=== PATIENT | female | born 1995 | race Caucasian/White ===

== ENCOUNTER → 2018-08-09 02:41 | Observation (INO) ==
[2018-08-09 01:31] LABS: Bilirubin,Urine Negative (Negative); Blood,Urine Negative (Negative); Clarity,Urine Cloudy (Clear); Color,Urine Yellow (Yellow); Glucose,Urine (UA) Normal (Normal); Ketones,Urine Negative (Negative); Leukocyte Esterase,Urine Large (Negative); Nitrite,Urine Negative (Negative); PH,Urine 6.5 pH Units (5.0-8.0); Protein,Urine Negative (Neg-Trace); Specific Gravity,Urine 1.013 (1.010-1.025); Urobilinogen,Urine Normal (Normal)
[2018-08-09 01:33] LABS: Bacteria,Urine Moderate per hpf (None-Few); Hyaline Casts,Urine None Seen per lpf (None-Few); RBC,Urine 0-3 per hpf (0-3); Squamous Epithelial Cell,Urine Many per lpf (None-Few); WBC,Urine 50-100 per hpf (0-3)
[2018-08-09 01:40] LABS: Amphetamine Screen,Urine Negative ng/mL (Cutoff=1000); Barbiturate Screen,Urine Negative ng/mL (Cutoff=200); Benzodiazepines Screen,Urine Negative ng/mL (Cutoff=200); Cannabinoid Screen,Urine Negative ng/mL (Cutoff = 50); Cocaine Screen,Urine Negative ng/mL (Cutoff= 300); Opiate Screen,Urine Negative ng/mL (Cutoff=300); Phencyclidine Screen,Urine Negative ng/mL (Cutoff=25)
[2018-08-09 02:23] LABS: Candida DNA DETECTED (Not Detect); Gardnerella DNA DETECTED (Not Detect); Trichomonas DNA Not Detected (Not Detect)
--- NOTE | 2018-08-09 06:18 | OB/GYN Progress Note ---
Date of Encounter: 08/09/18 Time of Encounter: 02:30 - Assessment and Plan (1) 33 weeks gestation of Status: Acute Urine - contaminated Vaginosis panel - yeast and gardnerella NST reactive Discharge home with labor precautions Follow up in office with routine care and PRN POC per consult with Dr Bernardo. (2) NST (non-stress test) reactive on surveillance Status: Acute Subjective - Subjective Principal diagnosis: Vaginal pressure Interval history: Ms Stauffer is a at 33 weeks 4 days that presents to triage to complaints of vaginal pressure and pain with movement. She had a with her previous delivery due to a vaginal septum. She is seen for her care by Dr Michele. Antepartum ROS: movement normal Objective - Vital Signs Vital Signs: Intake and Output 08/08/18 08/08/18 08/09/18 15:59 23:59 07:59 Other: Weight 91.852 kg Patient Weight 08/09/18 23:59 Weight 91.852 kg - Exam FHR: category 1 Abdomen: Present: soft, gravid. Absent: tenderness Uterus: Present: normal. Absent: firm, tenderness Comments: yeast like vaginal discharge - Labs Labs: Abnormal lab results Urine Clarity Cloudy (Clear) A 08/09/18 01:14 Ur Leukocyte Esterase Large (Negative) H 08/09/18 01:14 Urine Microscopic WBC 50-100 per hpf (0-3) H 08/09/18 01:14 Ur Squamous Epith Cells Many per lpf (None-Few) H 08/09/18 01:14 Urine Bacteria Moderate per hpf (None-Few) H 08/09/18 01:14 Ur Culture Indicated? NO. (NO) A 08/09/18 01:14 Alesha species DNA DETECTED (Not Detect) A 08/09/18 01:31 Gardnerella DNA Probe DETECTED (Not Detect) A 08/09/18 01:31
== END | disposition home or self-care (01) ==
LOC: 1NENULAB
PROVIDERS: ADMIT Advanced Practice Midwife; ATTEND Advanced Practice Midwife

== ENCOUNTER → 2018-08-25 01:12 | Observation (INO) ==
[2018-08-25 00:35] LABS: Bilirubin,Urine Negative (Negative); Blood,Urine Negative (Negative); Color,Urine Yellow (Yellow); Glucose,Urine (UA) Normal (Normal); Ketones,Urine Negative (Negative); Leukocyte Esterase,Urine Large (Negative); Nitrite,Urine Negative (Negative); PH,Urine 6.5 pH Units (5.0-8.0); Protein,Urine Negative (Neg-Trace); Specific Gravity,Urine 1.007 (1.010-1.025); Urobilinogen,Urine Normal (Normal)
[2018-08-25 00:37] LABS: Bacteria,Urine Moderate per hpf (None-Few); Hyaline Casts,Urine None Seen per lpf (None-Few); RBC,Urine 0-3 per hpf (0-3); Squamous Epithelial Cell,Urine Many per lpf (None-Few); WBC,Urine TNTC per hpf (0-3)
[2018-08-25 00:40] LABS: Clarity,Urine Hazy (Clear)
[2018-08-25 00:46] LABS: Amphetamine Screen,Urine Negative ng/mL (Cutoff=1000); Barbiturate Screen,Urine Negative ng/mL (Cutoff=200); Benzodiazepines Screen,Urine Negative ng/mL (Cutoff=200); Cannabinoid Screen,Urine Negative ng/mL (Cutoff = 50); Cocaine Screen,Urine Negative ng/mL (Cutoff= 300); Opiate Screen,Urine Negative ng/mL (Cutoff=300); Phencyclidine Screen,Urine Negative ng/mL (Cutoff=25)
--- NOTE | 2018-08-25 00:48 | OB/GYN Progress Note ---
Date of Encounter: 08/25/18 Time of Encounter: 00:41 - Assessment and Plan (1) 35 weeks gestation of Status: Acute (2) Encounter for suspected PROM, with rupture of membranes not found Status: Acute Negative nitrazine, no pooling on SSE. Suspect yeast infection persisting. Vaginosis panel shows yeast and BV. Rx clindamycin. Rx clotrimazole. Discharge home with precautions. (3) NST (non-stress test) reactive on surveillance Status: Acute 145 BPM, reactive NST Subjective - Subjective Interval history: 22 year-old female presenting at 35w6d with c/o leaking fluid, discharge, vaginal itching/irritation, and sharp pain in right lower back and hip. She reports the leaking started at 11:30 pm. She reports the she has been having contractions for days. Good FM. No other complaints. She was recently treated for BV and a yeast infection. This is complicated by obesity, history of delivery, history of previous delivery, and vaginal septum. Antepartum ROS: loss of fluid, movement normal, contractions, no vaginal bleeding Objective - Vital Signs Vital Signs: Intake and Output 08/24/18 08/24/18 08/25/18 15:59 23:59 07:59 Other: Weight 91.626 kg Patient Weight 08/25/18 23:59 Weight 91.626 kg - Exam FHR: category 1 Auscultation: bilateral: normal Abdomen: Present: soft, gravid Uterus: Present: normal. Absent: tenderness Cervical dilation: 1/thick/-3 per RN Comments: SSE with thick, white, discharge, negative pooling, negative nitrazine. - Labs Labs: Abnormal lab results Hazy (Clear) A 08/25/18 00:10 Ur Specific Douglas 1.007 (1.010-1.025) L 08/25/18 00:10 Ur Leukocyte Esterase Large (Negative) H 08/25/18 00:10 TNTC per hpf (0-3) H 08/25/18 00:10 Ur Squamous Epith Cells Many per lpf (None-Few) H 08/25/18 00:10 Moderate per hpf (None-Few) H 08/25/18 00:10 Ur Culture Indicated? YES (NO) A 08/25/18 00:10
[2018-08-25 01:38] LABS: Candida DNA DETECTED (Not Detect); Gardnerella DNA DETECTED (Not Detect); Trichomonas DNA Not Detected (Not Detect)
== END | disposition home or self-care (01) ==
LOC: 1NENULAB
PROVIDERS: ADMIT Registered Nurse; ATTEND Registered Nurse

== ENCOUNTER 2018-09-02 22:25 | Observation (INO) ==
[2018-09-02 23:09] LABS: Amphetamine Screen,Urine Negative ng/mL (Cutoff=1000); Barbiturate Screen,Urine Negative ng/mL (Cutoff=200); Benzodiazepines Screen,Urine Negative ng/mL (Cutoff=200); Cannabinoid Screen,Urine Negative ng/mL (Cutoff = 50); Cocaine Screen,Urine Negative ng/mL (Cutoff= 300); Opiate Screen,Urine Negative ng/mL (Cutoff=300); Phencyclidine Screen,Urine Negative ng/mL (Cutoff=25)
--- NOTE | 2018-09-02 23:13 | Discharge Summary ---
Date of Encounter: 09/02/18 Time of Encounter: 23:12 - Discharge Diagnosis (1) 37 weeks gestation of Priority: Primary Status: Acute Comments: Admit to observation for SROM evaluation (2) Vaginal discharge during in third trimester Priority: Secondary Status: Acute Comments: Seen on 08/25/18, vaginosis panel +BV and yeast. Patient is taking Clindamycin for BV but her pharmacy did not have the Clotrimazole available. Terazol sent to patient's pharmacy (3) NST (non-stress test) reactive on surveillance Priority: Secondary Status: Acute Comments: FHR 155 bpm, moderate variability, +15x15 accels, no decels. - Discharge Medications Prescriptions: No Action Formula Tablet 1 tab PO DAILY Clindamycin HCl [Cleocin HCl] 300 mg PO BID #14 capsule Home Medications: Formula Tablet 1 tab PO DAILY 07/05/18 [History] Clindamycin HCl [Cleocin HCl] 300 mg PO BID #14 capsule 08/25/18 [Rx] Allergies/Adverse Reactions: Allergy/AdvReac Type Severity Reaction Status Date / Time No Known Allergies Allergy Verified 09/02/18 22:39 Data Procedures and tests throughout hospitalization: Laboratory Tests 09/02/18 22:45 Urine Opiates Screen Negative Ur Barbiturates Screen Negative Ur Phencyclidine Scrn Negative Ur Amphetamines Screen Negative U Benzodiazepines Scrn Negative Urine Cocaine Screen Negative U Marijuana (THC) Screen Negative Ur Drug Screen Interp See Below Labs on day of discharge: Labs from last 24 hours 09/02/18 22:45 Urine Opiates Screen Negative Ur Barbiturates Screen Negative Ur Phencyclidine Scrn Negative Ur Amphetamines Screen Negative U Benzodiazepines Scrn Negative Urine Cocaine Screen Negative U Marijuana (THC) Screen Negative Ur Drug Screen Interp See Below Date of admission: 09/02/18 22:25 Discharging clinician: Addis Delgadillo Anticipated date of discharge: 09/02/18 - Patient Status Disposition: Home, Self-Care Condition: Good Functional capacity at discharge: independent ambulation Overall status at discharge: patient is progressing back to baseline - Discharge Instructions Follow Up With: Melita Michele DO [Partnered Physician] - - Diet and Activity Activity: resume usual activities as tolerated Diet: regular diet Hospital Course PUBLIC RELATIONS INTERN Hospital course: Chest his at 37 weeks 0 days who presents to labor and delivery with complaints of possible ruptured membranes. States she had a large gush of fluid and has continued to leak since that time. Nitrazine to the perineum returned negative, sterile speculum exam completed with negative nitrazine results. Large amount of yeast appearing discharge noted in the vagina. No obvious pooling with Valsalva maneuver. Fern negative. Patient states she was seen in labor and delivery on 2018 for the same complaint. She is found to be positive for bacterial vaginosis and yeast. She has been taking the clindamycin for the BV but states her pharmacy did not have the clotrimazole available. Terazol was sent to her pharmacy and patient was notified to only use one of those medications should the clotrimazole become available. She is to follow-up in [address] Michele as scheduled for routine care and preop appointment as she has a repeat section. Time Attestation: Total time spent providing and/or coordinating discharge services: Time Spent: Less than 30 minutes Exam - Constitutional General appearance IM: A&O X 3, pleasant, no acute distress, answers questions appropriately - Respiratory Respiratory exam: Present: CTAB - Cardiovascular Cardiovascular exam IM: Present: RRR, +S1, +S2 - GI/Abdominal GI/Abdominal exam IM: normal bowel sounds, soft - Rectal Rectal exam: deferred - External exam: normal external exam - Extremities Exam Extremities exam IM: Present: full ROM, normal capillary refill, normal inspection - Neurological Exam Neurological exam: alert, normal gait, oriented X3 - VTE Reasons for not Prescribing Prophylaxis: Treatment not Indicated - Low risk for VTE
== END 2018-09-02 23:29 | disposition home or self-care (01) ==
LOC: 1NENULAB
PROVIDERS: ADMIT Registered Nurse; ATTEND Registered Nurse

== ENCOUNTER 2018-09-17 10:05 | Inpatient (IN) ==
[2018-09-17] MEDS ORDERED: Oxytocin 20 units/ LR 1000 mL 20 UNIT/1,000 ML BAG IVC ONE (10:31)
[2018-09-17] MEDS ORDERED: Ringers Solution, Lactated 1,000 ML IVC ONE (10:31)
[2018-09-17] MEDS ORDERED: Famotidine 20 MG/2 ML VIAL IVP ONE (10:31)
[2018-09-17] MEDS ORDERED: CeFAZolin Premix DUPLEX 2,000 MG/50 ML BAG IVPB ONE (10:31)
[2018-09-17] MEDS ORDERED: Metoclopramide 10 MG/2 ML VIAL IVP ONE (10:31)
[2018-09-17] MEDS ORDERED: Oxytocin 20 units/ LR 1000 mL 20 UNIT/1,000 ML BAG IVC SCH ×2 (10:45→19:11)
--- NOTE | 2018-09-17 11:37 | Anesthesia Evaluation PreOp ---
Date of Encounter: 09/17/18 Time of Encounter: 11:35 - Past History Planned Operation: csection Cardiac History: Denies any Significant Hx Pulmonary History: Denies Any Significant HX COURT ADMINISTRATOR History: Denies Any Significant HX Other Medical History: Denies Any Significant HX Anesthesia History: No Prior Anesthetic Complications : Yes (39 weeks, ) Alcohol Use: none Drug use: none Medications and Allergies Formula Tablet 1 tab PO DAILY 07/05/18 [History] Clindamycin HCl [Cleocin HCl] 300 mg PO BID #14 capsule 08/25/18 [Rx] Allergy/AdvReac Type Severity Reaction Status Date / Time No Known Allergies Allergy Verified 09/02/18 22:39 - Meds/Allergy Pre-op Review Medications Reviewed: Yes Allergies Reviewed: Yes Beta Blockers on Current Med List: No Anesthesia Results - Labs Labs pending, will review WBC and PLT prior to proceeding Anesthesia Exam Height: 64 Weight: 188 NPO (# of Hours): greater rashawn 8 hours - HEENT Pupil (Motor): Pupils equal Mallampati: II Teeth: Normal Oral Opening: Greater than 3 - COURT ADMINISTRATOR LOC: Oriented COURT ADMINISTRATOR Motor: Normal RUE, Normal LUE, Normal RLE, Normal LLE, Normal Face COURT ADMINISTRATOR Sensory: Normal: RUE, LUE, RLE, LLE, Face - Cardiac Rhythm: Regular Murmur: None JVD: No Carotid Bruit: No - Pulmonary Breath Sounds: bilateral Clear Respiratory Effort: Symmetrical Anesthesia Assess/Plan ASA Score: 2 Level of consciousness: Cooperative Anesthetic Plan: Epidural Monitoring Plan: Standard Monitors Recovery Plan: PACU
[2018-09-17 11:42] LABS: Basophils % 0.3 %; Eosinophils # 0.1 K/mcL (0.0-0.6); Eosinophils % 0.9 %; Hematocrit 33.7 % (35.3-44.9); Hemoglobin 11.1 g/dL (11.5-15.4); Immature Granulocytes % 0.3 % (0-4); Lymphocytes # 1.6 K/mcL (0.6-4.6); Lymphocytes % 17.7 %; Mean Corpuscular HGB Conc 32.9 g/dL (31.6-35.5); Mean Corpuscular Hemoglobin 29.8 pg (28.0-33.3); Mean Corpuscular Volume 90.3 fL (83.0-100.0); Mean Platelet Volume 10.2 fL (9.4-12.4); Monocytes # 0.5 K/mcL (0.0-1.3); Monocytes % 5.7 %; Neutrophils # 6.7 K/mcL (1.6-8.9); Platelet Count 254 K/mcL (140-400); Red Blood Count 3.73 M/mcL (3.82-4.97); Red Cell Distribution Width 13.7 % (11.5-14.5); Segmented Neutrophils % 75.1 %
[2018-09-17 12:17] LABS: Amphetamine Screen,Urine Negative ng/mL (Cutoff=1000); Barbiturate Screen,Urine Negative ng/mL (Cutoff=200); Benzodiazepines Screen,Urine Negative ng/mL (Cutoff=200); Cannabinoid Screen,Urine Negative ng/mL (Cutoff = 50); Cocaine Screen,Urine Negative ng/mL (Cutoff= 300); Opiate Screen,Urine Negative ng/mL (Cutoff=300); Phencyclidine Screen,Urine Negative ng/mL (Cutoff=25)
--- NOTE | 2018-09-17 13:22 | OB/GYN History & Physical ---
Date of Encounter: 09/17/18 Time of Encounter: 13:18 Assessment and Plan (1) 39 weeks gestation of Current visit: Yes Status: Acute (2) Vaginal septum affecting in third trimester Current visit: Yes Status: Acute (3) Previous section complicating Current visit: Yes Status: Acute Risks, benefits, and alternatives were previously discussed and informed consent obtained. Patient is without questions today. History of Present Illness Chief complaint: Here for repeat section HPI: Ms. Stauffer is a 23 year old female G 3 P 1-1-0-2 at 39 1/7 weeks presents to labor and delivery for repeat section. She has a vaginal septum without repair. She has a history of a 26 week and declined 17 OHP injections. She dropped in for her second delivery in labor and the septum was found on exam and she was taken for . She denies any contractions, vaginal bleeding, or leaking fluid. She reports good movement. Past Med Surg Social Fam HX - Past Medical History Source: patient Medical history: no medical history Psychiatric history: no psych history - Past Surgical History Surgical History: - Social History Smoking Status: Never smoker Smokeless Tobacco Status: No Alcohol use: none Drug use: none - Family History Mother Adopted: No Living Status: Still Living Hx Family Cardiac Disorders: No Hx Family Respiratory Disorders: No Hx Family Cancer: No Hx Family GI Disorders: No Hx Family Genitourinary Disorders: Yes Hx Family Endocrine Disorder: Yes (CKD) Hx Family Neuromuscular Disorders: No Hx Family Neurologic Disorders: No Hx Family HEENT Disorders: No Hx Family Autoimmune Disorders: No Obstetrical History - Pregnancies : 3 Para: 2 Term: 1 : 1 Ab's: 0 Livin Medications and Allergies No Known Home Drugs 09/17/18 [History] Allergy/AdvReac Type Severity Reaction Status Date / Time No Known Allergies Allergy Verified 09/17/18 12:56 Review of System OB All systems PM: reviewed and no additional remarkable complaints except as stated - Constitutional Constitutional ROS IM: no fatigue, no fever(s), no headache(s) - Gastrointestinal Gastrointestinal: no nausea, no vomiting - Genitourinary Genitourinary: as per HPI Exam - Constitutional Constitutional: well developed, well nourished, no acute distress, average body habitus - HEENT HEENT: EOMI, Mucus Membranes Moist - Lungs Respiratory exam: CTAB - Cardiovascular Cardiovascular exam: RRR - Abdomen Abdomen: Present: bowel sounds normal, gravid, non tender - Cervix Dilation: 0 (on exam 09/04/18) Results Result Diagrams: 09/17/18 11:15 Abnormal lab results RBC 3.73 M/mcL (3.82-4.97) L 09/17/18 11:15 Hgb 11.1 g/dL (11.5-15.4) L 09/17/18 11:15 Hct 33.7 % (35.3-44.9) L 09/17/18 11:15 All other labs normal.
[2018-09-17] MEDS: Ringers Solution, Lactated 1,000 ML IVC SCH ×2 (14:34→15:22)
[2018-09-17] MEDS ORDERED: *HR* Morphine Sulfate/PF 10 MG/10 ML AMPUL ONE (15:30)
[2018-09-17] MEDS ORDERED: *HR* FentaNYL (PF) 100 MCG/2 ML VIAL ONE (15:31)
[2018-09-17] MEDS ORDERED: Ondansetron 4 MG/2 ML VIAL ONE (16:08)
[2018-09-17] MEDS ORDERED: *HR* Oxytocin 10 UNIT/ML VIAL IM ONE ×2 (16:12→16:13)
[2018-09-17] MEDS ORDERED: Ringers Solution, Lactated 1,000 ML ONE (16:12)
--- NOTE | 2018-09-17 17:05 | OB/GYN Procedure Note ---
Section - Date of procedure: 09/17/18 Preop diagnosis: desires repeat Post-op diagnosis: same Procedure: section, repeat low transverse Surgeon: Melita Maravilla Blood Loss: 200 Was there an assistant center director present: Yes Beauty Parlor Cleaner: Kenia Granados Industrial Truck Mechanic: Jatinder North Anesthesia Type: Spinal section complications: none Disposition: L&D Recovery Room Specimens: Placenta (hold) - (s) A Delivery Date: 09/17/18 Delivery Time: 16:10 Presentation: vertex Gender: Female Viability: Viable Pounds: 6 Ounces: 4 Gram Weight: 2.845 kg at 1 minute: 9 at 5 minutes: 9 Shoulder Dystocia: not encountered Placenta: spontaneous Cord: 3 umbilical vessels - Narrative Narrative: Patient was taken to the operative suite and placed under spinal anesthetic. She was then prepped and draped in normal sterile fashion in the dorsal supine position. Timeout was then performed. Antibiotics were given at room time. SCDs are on and active. Pfannenstiel skin incision is then made and carried through to underlying layer of fascia with the Bovie. The fascia was then incised in the midline and incision extended laterally with the Pak scissors. The fascia was tented up and dissected off the rectus muscles sharply. The rectus muscles were in the midline and the peritoneum was tented up and entered sharply with the Metzenbaum scissors. The peritoneal incision was then extended bluntly. The bladder blade was then inserted and the vesicouterine peritoneum was entered sharply. Bladder flap was created digitally. A low transverse uterine incision was then made. The vertex was brought to the incision and the infant was delivered using fundal pressure. There was no nuchal cord. Cord was clamped and cut. Infant was handed to waiting nursery staff. Placenta delivered spontaneously complete and intact with a three-vessel cord. The uterus was cleared of all clots and debris using moist laparotomy sponge. The uterine incision was then closed using 0 Vicryl in a running locked fashion. A second layer of the same suture was used to obtain excellent hemostasis. The abdomen was then cleared of all clots and debris using copious irrigation. The fascial incision was then closed using 0 Vicryl in a running fashion. The skin was closed using 4-0 Vicryl in a subcuticular fashion. Steri-Strips and sterile dressing are then placed. Mother and infant taken to recovery in stable condition.
--- NOTE | 2018-09-17 18:42 | Anesthesia Evaluation Post Op ---
Date of Encounter: 09/17/18 Time of Encounter: 18:41 - Vital Signs Vital Signs: HR 87 RR 18 BP 108/78 SPO2 98 T 98.4 - Lungs Lungs: Clear Ascult./Percussion - Airway Airway: Non-obstructed - Cardiovascular Regular Rate - Mental Status Mental Status: Alert & Oriented, Answers Appropriately - Pain Pain Scale: 3 - Nausea Vomiting Nausea Vomiting: Not Present - Hydration Hydration: Ice chips, Cardenas catheter - Discharge PostOp Status: Transfer Patient to floor
[2018-09-17] MEDS ORDERED: Simethicone 80 MG TAB.CHEW PO PRN (19:11)
[2018-09-17] MEDS ORDERED: Metoclopramide 10 MG/2 ML VIAL IVP PRN (19:11)
[2018-09-17] MEDS ORDERED: Sennosides 8.6 MG TABLET PO PRN (19:11)
[2018-09-17] MEDS ORDERED: *HR* OxyCODONE Immed Rel 5 MG TABLET PO PRN (19:11)
[2018-09-17] MEDS ORDERED: Ibuprofen 600 MG TABLET PO PRN (19:11)
[2018-09-17] MEDS ORDERED: *HR* HYDROcodone/Acet 5/325 mg TABLET PO PRN (19:11)
[2018-09-17] MEDS ORDERED: Ondansetron 4 MG/2 ML VIAL IVP PRN (19:11)
[2018-09-18] MEDS: Prenatal Vit/FA 1 EACH TABLET PO SCH (08:35)
[2018-09-18] MEDS: Acetaminophen 325 MG TABLET PO PRN ×2 (08:38→22:11)
--- NOTE | 2018-09-18 09:34 | OB/GYN Progress Note ---
Date of Encounter: 09/18/18 Time of Encounter: 09:28 - Assessment and Plan (1) S/P repeat low transverse Current Visit: Yes Status: Acute POD #1 Meeting day 1 milestones Pain well controlled on prescribed medications Bleeding minimal, no large clots noted Tolerating diet. Urinating without difficulty. Not passing gas, no BM yet, but bowel sound present Ambulating without difficulty Likely discharge tomorrow Subjective - Subjective Principal diagnosis: s/p Patient reports: appetite normal, voiding normally, pain well controlled, ambulating normally [place]: doing well Objective - Vital Signs Latest vital signs: Vital Signs Temp Pulse Pulse Resp BP Pulse Ox 09/18/18 04:00 98.3 F 95 16 93/62 98 09/17/18 22:30 98.3 F 82 14 112/73 09/17/18 21:30 73 14 09/17/18 20:00 97.8 F 74 14 95/53 98 09/17/18 19:30 97.8 F 72 16 114/78 99 Intake and Output 09/17/18 09/18/18 09/18/18 23:59 07:59 15:59 Intake Total 300 / 300 Output Total 200 / 200 1000 / 1000 Balance -200 / 800 -700 / -700 Intake: Oral 300 / 300 Output: Estimated Blood Loss 200 / 200 Catheter 1000 / 1000 Other: Stool Characteristics Normal for Patient Weight 94.3 kg 90.764 kg Patient Weight 09/18/18 23:59 Weight 90.764 kg - Exam Lungs: bilateral: normal Chest: Normal S1, Normal S2 Extremities: Present: normal Abdomen: Present: normal appearance, soft Incision: Present: dry, intact Uterus: Present: firm Fundal Height: 1 (1 below umbilicus) Comments: I examined this patient and my medical decision-making was reviewed with the Resident Physician. I agree with the documented findings, disposition and treatment plan as described except to the extent set forth below. SOLOMON Roa - Labs Labs: Laboratory Results - last 24 hr 09/17/18 09/17/18 11:15 11:15 WBC 8.9 RBC 3.73 L Hgb 11.1 L Hct 33.7 L MCV 90.3 MCH 29.8 MCHC 32.9 RDW 13.7 Plt Count 254 MPV 10.2 Immature Gran % 0.3 Seg Neutrophils % 75.1 Lymphocytes % 17.7 Monocytes % 5.7 Eosinophils % 0.9 Basophils % 0.3 Neutrophils # 6.7 Lymphocytes # 1.6 Monocytes # 0.5 Eosinophils # 0.1 Basophils # 0.0 Urine Opiates Screen Negative Ur Barbiturates Screen Negative Ur Phencyclidine Scrn Negative Ur Amphetamines Screen Negative U Benzodiazepines Scrn Negative Urine Cocaine Screen Negative U Marijuana (THC) Screen Negative Ur Drug Screen Interp See Below
[2018-09-19 08:08] VITALS: BP 115/69
[2018-09-19] MEDS: Prenatal Vit/FA 1 EACH TABLET PO SCH (08:37)
--- NOTE | 2018-09-19 10:05 | Discharge Summary ---
Date of Encounter: 09/19/18 Time of Encounter: 10:02 - Discharge Diagnosis (1) Status post Priority: Primary Status: Acute Comments: 23 y/o F is POD 2 repeat c/s duet o vaginal septum reports recovering. She reports bleeding with small clots. She is able to tolerate regular diet and reports flatus but no BM yet. She plans to bottle feed. Denies dysuria, chest pain, palpitations, cough or shortness of breath. She desires control with depo shot but hasn't used it before (2) Back pain Priority: Secondary Status: Acute Comments: Patient reports sacral back pain that radiates to right hip with out radiation down leg. Denies muscle weakness or numbness. Patient afebrile. She attributes pain to epidural placement. Received once dose of noroc 5 this morning Qualifiers: Back pain location: low back pain Back pain laterality: right Sciatica presence: without sciatica Qualified Code(s): M54.5 - Low back pain (3) Contraceptive management Priority: Secondary Status: Acute Comments: patient desires depo shot Qualifiers: Contraceptive encounter type: initial prescription Contraceptive type: injectable Qualified Code(s): Z30.013 - Encounter for initial prescription of injectable contraceptive - Discharge Medications Prescriptions: New Docusate [Colace] 100 mg PO BID #60 capsule Ibuprofen [Motrin] 600 mg PO Q6HR #60 tablet HYDROcodone/Acet 5/325 mg [[facility] 5-325 mg] 1 tab PO Q4HR PRN 3 Days #15 tablet PRN Reason: Moderate Pain Home Medications: Docusate [Colace] 100 mg PO BID #60 capsule 09/19/18 [Rx] HYDROcodone/Acet 5/325 mg [[facility] 5-325 mg] 1 tab PO Q4HR PRN 3 Days #15 tablet 09/19/18 [Rx] Ibuprofen [Motrin] 600 mg PO Q6HR #60 tablet 09/19/18 [Rx] Allergies/Adverse Reactions: Allergy/AdvReac Type Severity Reaction Status Date / Time No Known Allergies Allergy Verified 09/17/18 12:56 Data Procedures and tests throughout hospitalization: Laboratory Tests 09/17/18 09/17/18 11:15 11:15 WBC 8.9 RBC 3.73 L Hgb 11.1 L Hct 33.7 L MCV 90.3 MCH 29.8 MCHC 32.9 RDW 13.7 Plt Count 254 MPV 10.2 Immature Gran % 0.3 Seg Neutrophils % 75.1 Lymphocytes % 17.7 Monocytes % 5.7 Eosinophils % 0.9 Basophils % 0.3 Neutrophils # 6.7 Lymphocytes # 1.6 Monocytes # 0.5 Eosinophils # 0.1 Basophils # 0.0 Urine Opiates Screen Negative Ur Barbiturates Screen Negative Ur Phencyclidine Scrn Negative Ur Amphetamines Screen Negative U Benzodiazepines Scrn Negative Urine Cocaine Screen Negative U Marijuana (THC) Screen Negative Ur Drug Screen Interp See Below Date of admission: 09/17/18 10:05 Primary care physician: PCP NONE Discharging clinician: Kimmie Sheppard Anticipated date of discharge: 09/19/18 - Patient Status Disposition: Home, Self-Care Condition: Good Functional capacity at discharge: independent ambulation Overall status at discharge: patient is progressing back to baseline - Discharge Instructions Follow Up With: NONE,PCP [Primary Care Provider] - - Diet and Activity Activity: increase activity as tolerated Diet: advance to your usual diet Hospital Course Reason for admission: section Delivery: section Episiotomy: none Laceration: none Other procedures: other (depo injection) complications: none Discharge diagnosis: IUP at term delivered [place] baby: female Hospital course: Section - Date of procedure: 09/17/18 Preop diagnosis: desires repeat Post-op diagnosis: same Procedure: section, repeat low transverse Surgeon: Melita Michele Quantitated Blood Loss: 200 Was there an assistant manager retail present: Yes Clipper And Turner: Kenia Granados Splicing Technician: Jatinder North Anesthesia Type: Spinal section complications: none Disposition: L&D Recovery Room Specimens: Placenta (hold) - (s) A Delivery Date: 09/17/18 Infant Delivery Time: 16:10 Presentation: vertex Gender: Female Viability: Viable Pounds: 6 Ounces: 4 Gram Weight: 2.845 kg at 1 minute: 9 at 5 minutes: 9 Shoulder Dystocia: not encountered Placenta: spontaneous Cord: 3 umbilical vessels - Narrative Narrative: Patient was taken to the operative suite and placed under spinal anesthetic. She was then prepped and draped in normal sterile fashion in the dorsal supine position. Timeout was then performed. Antibiotics were given at room time. SCDs are on and active. Pfannenstiel skin incision is then made and carried through to underlying layer of fascia with the Bovie. The fascia was then incised in the midline and incision extended laterally with the Pak scissors. The fascia was tented up and dissected off the rectus muscles sharply. The rectus muscles were in the midline and the peritoneum was tented up and entered sharply with the Metzenbaum scissors. The peritoneal incision was then extended bluntly. The bladder blade was then inserted and the vesicouterine peritoneum was entered sharply. Bladder flap was created digitally. A low transverse uterine incision was then made. The vertex was brought to the incision and the infant was delivered using fundal pressure. There was no nuchal cord. Cord was clamped and cut. was handed to waiting nursery staff. Placenta delivered spontaneously complete and intact with a three-vessel cord. The uterus was cleared of all clots and debris using moist laparotomy sponge. The uterine incision was then closed using 0 Vicryl in a running locked fashion. A second layer of the same suture was used to obtain excellent hemostasis. The abdomen was then cleared of all clots and debris using copious irrigation. The fascial incision was then closed using 0 Vicryl in a running fashion. The skin was closed using 4-0 Vicryl in a subcuticular fashion. Steri-Strips and sterile dressing are then placed. Mother and infant taken to recovery in stable condition. Time Attestation: Total time spent providing and/or coordinating discharge services: - VTE Documentation of Mechanical Device: Intermittent pneumatic compression device Exam - Constitutional Vitals: Temp Pulse Resp BP Pulse Ox 98 F 66 14 115/69 98 09/19/18 08:07 09/19/18 08:07 09/19/18 08:07 09/19/18 08:07 09/19/18 08:07 General appearance IM: cooperative, no acute distress, obese, answers questions appropriately - Respiratory Respiratory exam: Present: CTAB. Absent: accessory muscle use, wheezes - Cardiovascular Cardiovascular exam IM: Present: RRR. Absent: diastolic murmur, systolic murmur - GI/Abdominal GI/Abdominal exam IM: normal bowel sounds Incision: normal, dry, intact (steri strips in place with good clotting but no active bleeding) - Rectal Rectal exam: deferred - Uterine Tone: Firm Uterus Position: 2 Fingers Below Umbilicus - Extremities Exam Extremities exam IM: Present: full ROM, radial pulses palpable and symmetrical. Absent: calf tenderness, pedal edema - Neurological Exam Neurological exam: abnormal gait, altered, oriented X3, no focal deficits, strengths equal and symetr throughout (lower extremity sensation normal )
== END 2018-09-19 14:54 | disposition home or self-care (01) | DRG 540 ==
LOC: 1NENULAB 10:05 → 1NENUOBS 20:25
PROVIDERS: ADMIT Obstetrics & Gynecology; ATTEND Obstetrics & Gynecology